=== PATIENT | male | born 1980 | race Caucasian/White ===

== ENCOUNTER 2020-03-13 14:02 | Emergency (ER) | payer OTHER ==
[~2020-03-13] VITALS: Ht 177.8 cm; Wt 108.0 kg
[2020-03-13 14:32] LABS: ABSOLUTE NEUTROPHILS 3.8 thou/uL (1.4-8.2); BASOPHILS 0.7 % (0.0-2.0); EOSINOPHILS 7.4 % (0.0-3.0); HEMATOCRIT 49.1 % (42.0-52.0); LYMPHOCYTES 21.9 % (24.0-44.0); MCH 31.8 pg (26.0-34.0); MCHC 34.6 g/dL (28.0-37.0); MCV 92.1 fL (80.0-100.0); MONOCYTES 9.1 % (1.0-8.0); PLATELET COUNT 242 thou/uL (150-400); POLYS 60.9 % (36.0-66.0); RBC 5.33 mil/uL (4.50-6.00); RDW 12.4 % (10.5-14.5); WBC 6.3 thou/uL (4.0-11.0)
[2020-03-13 14:48] LABS: ANION GAP 11 mmol/L (7-16); BUN 8 mg/dL (7-18); CALCIUM 8.9 mg/dL (8.5-10.1); CHLORIDE 103 mmol/L (98-107); CO2 25 mmol/L (21-32); CREATININE 1.1 mg/dL (0.7-1.3); GLUCOSE 103 mg/dL (74-106); POTASSIUM 3.4 mmol/L (3.5-5.1); SODIUM 139 mmol/L (136-145)
[2020-03-13 14:57] LABS: ALBUMIN 4.1 g/dL (3.4-5.0); SGOT 27 U/L (15-37); SGPT 69 U/L (30-65); TOTAL BILIRUBIN 0.5 mg/dL (0.2-1.0); TOTAL PROTEIN 7.4 g/dL (6.4-8.2); TROPONIN-I <0.06 ng/mL (<0.06)
[2020-03-13] MEDS ORDERED: TOPROL XL50 MG PO (15:19)
[2020-03-13 15:45] VITALS: BP 136/89
--- NOTE | 2020-03-13 16:49 | EKG ---
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: [facility] : 1980 Requested By: Cassidy Ludwig Order Number: [id number] MD: Abad Rocha Measurements Intervals [place] Rate: 87 P: 97 [place]: 174 QRS: 82 QRSD: 90 T: 55 QT: 347 QTc: 418 Interpretive Statements Sinus tachycardia Frequent premature ventricular complexes Anterior infarct, old No previous ECG available for comparison Electronically Signed On 03-13-2020 16:49:21 CDT by Abad Rocha [email or web address] <ELECTRONICALLY SIGNED> By: Abad Rocha MD, FAC 03/13/20 1649 1404 1404 Abad Rocha MD, [facility] /EPI
== END 2020-03-13 15:45 | disposition home or self-care (01) ==
LOC: ER 14:02
PROVIDERS: Emergency Medicine
DX: R00.2 Palpitations (principal); F17.210 Nicotine dependence, cigarettes, uncomplicated

== ENCOUNTER 2020-04-03 12:50 | Emergency (ER) | payer OTHER ==
[~2020-04-03] VITALS: Ht 177.8 cm; Wt 106.6 kg
[~2020-04-03 12:50] MED LIST: TOPROL XL50 MG PO
[2020-04-03 14:28] LABS: URINE BILIRUBIN NEGATIVE (Negative); URINE BLOOD NEGATIVE (Negative); URINE CLARITY CLEAR; URINE COLOR YELLOW; URINE GLUCOSE-RANDOM* NEGATIVE (Negative); URINE KETONES NEGATIVE (Negative); URINE LEUKOCYTES-REFLEX NEGATIVE (Negative); URINE NITRITE-REFLEX NEGATIVE (Negative); URINE PROTEIN (DIPSTICK) NEGATIVE (Negative); URINE SPECIFIC GRAVITY <= 1.005 (1.005-1.035); URINE UROBILINOGEN 0.2 E.U./dl (0.2-1.0)
[2020-04-03 14:42] LABS: AMP/METHAMP Negative (Negative); BARBITURATES Negative (Negative); BENZODIAZEPINES Negative (Negative); COCAINE Negative (Negative); METHADONE Negative (Negative); OPIATES Negative (Negative); PCP Negative (Negative)
[2020-04-03 14:49] LABS: ABSOLUTE NEUTROPHILS 3.8 thou/uL (1.4-8.2); BASOPHILS 0.6 % (0.0-2.0); EOSINOPHILS 8.1 % (0.0-3.0); HEMATOCRIT 47.3 % (42.0-52.0); HEMOGLOBIN 16.4 gm/dL (14.0-18.0); LYMPHOCYTES 18.5 % (24.0-44.0); MCH 31.6 pg (26.0-34.0); MCHC 34.6 g/dL (28.0-37.0); MCV 91.3 fL (80.0-100.0); MONOCYTES 8.7 % (1.0-8.0); PLATELET COUNT 245 thou/uL (150-400); POLYS 64.1 % (36.0-66.0); RBC 5.19 mil/uL (4.50-6.00); RDW 12.3 % (10.5-14.5)
--- NOTE | 2020-04-03 14:50 | EKG ---
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: [facility] : 1980 Requested By: Gurwinder Ruiz Order Number: [id number] MD: Jasiel Last Measurements Intervals [place] Rate: 72 P: 89 [place]: 173 QRS: 75 QRSD: 90 T: 55 QT: 363 QTc: 398 Interpretive Statements Sinus rhythm Anterior infarct, old Baseline wander in lead(s) V2 Compared to ECG 03/13/2020 14:04:26 Sinus tachycardia no longer present Ventricular premature complex(es) no longer present Myocardial infarct finding still present Electronically Signed On 04-03-2020 14:50:05 CDT by Jasiel Last [email or web address] <ELECTRONICALLY SIGNED> By: Jasiel Last MD 04/03/20 1450 1343 1343 Jasiel Last MD /EPI
[2020-04-03 14:59] LABS: ANION GAP 10 mmol/L (7-16); BUN 10 mg/dL (7-18); CHLORIDE 105 mmol/L (98-107); CO2 27 mmol/L (21-32); CREATININE 0.9 mg/dL (0.7-1.3); GLUCOSE 101 mg/dL (74-106); SODIUM 142 mmol/L (136-145)
[2020-04-03 15:10] LABS: SGOT 24 U/L (15-37); SGPT 70 U/L (30-65); TOTAL BILIRUBIN 0.4 mg/dL (0.2-1.0); TOTAL PROTEIN 7.1 g/dL (6.4-8.2); TROPONIN-I <0.06 ng/mL (<0.06)
[2020-04-03 16:26] VITALS: BP 139/88
== END 2020-04-03 16:26 | disposition home or self-care (01) ==
LOC: ER 12:50
PROVIDERS: Emergency Medicine
DX: R42 Dizziness and giddiness (principal); F41.9 Anxiety disorder, unspecified; I49.3 Ventricular premature depolarization; R94.31 Abnormal electrocardiogram [ECG] [EKG]; F17.210 Nicotine dependence, cigarettes, uncomplicated; Z79.899 Other long term (current) drug therapy

== ENCOUNTER 2020-06-05 09:03 | Emergency (ER) | payer OTHER ==
[~2020-06-05] VITALS: Ht 177.8 cm; Wt 104.3 kg
[2020-06-05] MEDS ORDERED: NORCO 5-325 TA1 EAC2 PO (10:21)
[2020-06-05] MEDS ORDERED: MOBIC15 MG PO (10:21)
[2020-06-05 11:18] VITALS: BP 156/88
== END 2020-06-05 11:18 | disposition home or self-care (01) ==
LOC: ER 09:03
DX: S82.831A Other fracture of upper and lower end of right fibula, initial encounter for closed fracture (principal); F17.210 Nicotine dependence, cigarettes, uncomplicated; Z79.899 Other long term (current) drug therapy; X50.1XXA Overexertion from prolonged static or awkward postures, initial encounter; Y93.89 Activity, other specified; Y92.89 Other specified places as the place of occurrence of the external cause; Y99.8 Other external cause status